=== PATIENT | male | born 1970 | race Caucasian/White ===

== ENCOUNTER 2017-01-04 07:46 | Emergency (ER) | payer SELFPAY ==
[~2017-01-04 07:46] MED LIST: BUTA1CAP PO; IBUP-232 PO; METF500T PO; PERC5TAB12 PO; REGL10TA5 PO
[2017-01-04 07:48] VITALS: BP 121/87; PULSE 88; RESP 20; TEMP 98.8; O2SAT 98
--- NOTE | 2017-01-04 08:17 | PD ---
HPI . right eye irritation since yesterday Chief Complaint: Eye Problems/Injury Time Seen by Provider: 08:14 Travel History International Travel<30 days: No Contact w/Intl Traveler<30days: No Traveled to known affect area: No History of Present Illness HPI 46-year-old male here with complaints of right eye irritation since yesterday. Patient says that he went to our [facility] in [place] and was told he may have an eye emergency, however was not able to make it back to the emergency department due to not having gas. He is here now with complaints of eye redness and irritation. He also reports that he may have had some drainage. He reports slightly blurry vision, but is able to see. He has no other complaints at this time. He tells me that yesterday he was seen, and told that he may have acute eye problems and needs to see an road traffic controller immediately. He did not have any kind of testing done as there was some issues with electricity. Does not wear contacts. PFSH Past Medical History Cancer: No Cardiovascular Problems: No Diabetes: Yes Diminished Hearing: No Deep Vein Thrombosis: Yes Gastrointestinal Disorders: No Genitourinary: No Immune Disorder: No Implanted Vascular Access Dvce: No Musculoskeletal: No Neurologic: No Psychiatric: No Reproductive: No Respiratory: No Thyroid Disease: No Past Surgical History Other Surgery: Yes (ADENOIDS, DEVIATED SEPTUM) Social History Alcohol Use: No Tobacco Use: Yes Substance Use: No Allergies-Medications (Allergen,Severity, Reaction): Coded Allergies: No Known Allergies (Unverified , 01/04/17) Reported Meds & Prescriptions Reported Meds & Active Scripts Active Erythromycin Opth Oint 5 Mg/Gm Oint 1 Applic RIGHT EYE BID 5 Days Ibuprofen 600 Mg Tab 600 Mg PO Q6H PRN Reglan (Metoclopramide HCl) 10 Mg Tab 10 Mg PO QID Fioricet (Bkranetvvr-Clutrdlzzxbhf-Rmwnhuki) 50-300-40 Mg Cap 1-2 Cap PO Q6H PRN Percocet (Oxycodone-Acetaminophen) 5-325 mg Tab 1-2 Tab PO Q6H PRN Reported Metformin (Metformin HCl) 500 Mg Tab 500 Mg PO QID With meals Review of Systems General / Constitutional: No: Fever Eyes: Positive: Photophobia, Drainage, Redness, Pain, Tearing, No: Visual changes HENT: No: Headaches Cardiovascular: No: Chest Pain or Discomfort Respiratory: No: Shortness of Breath Gastrointestinal: No: Abdominal Pain Genitourinary: No: Dysuria Musculoskeletal: No: Pain Skin: No Rash Neurologic: No: Weakness Psychiatric: No: Depression Endocrine: No: Polydipsia Hematologic/Lymphatic: No: Easy Bruising Physical Exam Narrative GENERAL: AAO x 3, no acute distress, Well-nourished, well-developed patient. SKIN: Warm and dry. No visible rashes or bruising. HEAD: Normocephalic and atraumatic. EYES: No scleral icterus. EOM intact, PERRLA. no injection of the right eye, visible dried purulent matter. + corneal abrasion on the lower lateral side of cornea, IOP is normal ENT: No nasal drainage noted. Mucous membranes pink. Airway patent. NECK: Supple, trachea midline. No JVD. CARDIOVASCULAR: Regular rate and rhythm without murmurs, gallops, or rubs. RESPIRATORY: Breath sounds equal bilaterally. No accessory muscle use. No rhonchi or rales. GASTROINTESTINAL: visual inspection normal EXTREMITIES: No cyanosis or edema. BACK: No obvious deformity. NEURO: CN II-12 intact, PSYCH: AAO x 3, normal affect. Data Data Last Documented VS Vital Signs Date Time Temp Pulse Resp B/P (MAP) Pulse Ox O2 Delivery O2 Flow Rate FiO2 01/04/17 07:57 (98) 01/04/17 07:48 98.8 88 20 98 Room Air Orders Orders Proparacaine 0.5% Opth Soln (Alcaine 0.5 (01/04/17 08:30) MDM Medical Decision Making Medical Screen Exam Complete: Yes Emergency Medical Condition: Yes Medical Record Reviewed: Yes Differential Diagnosis Bacterial conjunctivitis, corneal abrasion, less likely foreign body, less likely acute angle-closure glaucoma, less likely uveitis Narrative Course 46-year-old male here with complaints of eye irritation on the right side. On examination there is no obvious foreign body or abnormality. He does have some dried purulent matter in the medial corner of his eye. Eye staining performed and there is a small corneal abrasion on the right eye lateral side. Right eye IOP: 13, 14, 17 I explained to the patient that his intraocular pressures are normal size and I do not suspect any glaucoma. There is an explanation for his redness and irritation to his eye. He does have a corneal abrasion. He admits to rubbing his eyes. I advised him that he will need to follow-up with an outpatient road traffic controller. I have provided him with erythromycin ophthl ointment. Diagnosis Primary Impression: Corneal abrasion Qualified Codes: S05.01XA - Injury of conjunctiva and corneal abrasion without foreign body, right eye, initial encounter Referrals: [facility] Patient Instructions: General Instructions Additional Instructions: If you develop sudden onset of worsening pain in your eye or loss of vision, go to the nearest emergency department. Med/Other Pt SpecificInfo: Prescription(s) given Scripts Erythromycin Opth Oint (Erythromycin Opth Oint) 5 Mg/Gm Oint 1 APPLIC RIGHT EYE BID for Infection for 5 Days, #1 TUBE 0 Refills Prov: Mitchel Flannery MD 01/04/17 Disposition: 01 DISCHARGE HOME Condition: Stable Mallory Serrato Jan 04, 2017 08:17
[2017-01-04] MEDS ORDERED: PROPARACAINE HCL 0.5% OPHT SOLN 15 ML BTL EACH EYE ONE (08:30)
[2017-01-04] MEDS ORDERED: ERYTOIN10 RIGHT EYE (08:36)
== END 2017-01-04 09:00 | disposition home or self-care (01) ==
LOC: NEPK 07:46
DX: S05.01XA Injury of conjunctiva and corneal abrasion without foreign body, right eye, initial encounter (principal); X58.XXXA Exposure to other specified factors, initial encounter
CPT/HCPCS: 99283